=== PATIENT | female | born 1975 | race Caucasian/White ===

== ENCOUNTER → 2018-07-14 | Outpatient (CLI) | payer MEDICAID | LOC: BMCIMAGING 15:10 | PROVIDERS: ATTEND Advanced Practice Midwife | DX: Z12.31 Encounter for screening mammogram for malignant neoplasm of breast (principal) ==

== ENCOUNTER 2018-09-25 18:31 | Emergency (ER) | payer MEDICAID ==
[2018-09-25 18:37] VITALS: BP 143/72
[2018-09-25] MEDS ORDERED: LIDOCAINE 4%/MENTHOL 1% PATCH TD ONE (19:31)
[2018-09-25] MEDS ORDERED: KETOROLAC 30 MG/1 ML SDV IM ONE (19:32)
[2018-09-25] MEDS ORDERED: CYCLOBENZAPRINE 10MG PREPACK#3 BTL TAKEHOME ONE (19:32)
--- NOTE | 2018-09-25 19:37 | EDPHY ---
HPI/HX/ROS/PE/MDM Narrative: CHIEF COMPLAINT: Low back pain HPI: The patient is a 42-year-old female with no history of back surgery or back disease. 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 She believes this is because of severe back pain which started approximately 5 days ago. She denies any fall or specific injury. She complains of low back ache with some radiation to the right sciatic notch region. She denies any saddle anesthesia, incontinence, fever or difficulty walking. She is able to continue to work and lifting things but her pain becomes very severe when she tries to drive home late at night. REVIEW OF SYSTEMS: Aside from elements discussed in the HPI, a comprehensive 10-point review of systems was reviewed and is negative. PMH: No history of back disease. No history of diabetes. SOCIAL HISTORY: Under of a coffee shop. Denies drug abuse. PHYSICAL EXAM: General:Patient is alert, in no acute distress. Sitting up in bed in no acute distress. ENT:Eyes are normal to inspection. ENT inspection normal. Neck: Normal inspection. Full range of motion. Respiratory:No respiratory distress. Breath sounds normal bilaterally. Cardiovascular: Regular rate and rhythm. Strong peripheral pulses. Normal cap refill. Abdomen:The abdomen is nontender to palpation. There are no peritoneal signs. There are normal bowel sounds. Back: Normal to inspection. Mild tenderness over the right sciatic notch. No midline tenderness. No signs of trauma. Skin: Normal color. No rash. Warm and dry. Extremities: Normal appearance. Full range of motion. Neuro: Oriented x3. Normal motor function. Normal sensory function. 5/5 strength to dorsiflexion plantar flexion bilaterally. Normal gait. MDM: This patient presents with signs and symptoms of a low back strain. There are no signs of cauda equina, discitis or other neurosurgical emergency. We discussed imaging but agreed on symptomatic management as well as referral to [facility] for further evaluation. We discussed strict return precautions. General Time Seen by Provider: 09/25/18 19:13 Initial Vital Signs: Initial Vital Signs Temperature (C) 36.9 C 09/25/18 18:33 Heart Rate 73 09/25/18 18:33 Respiratory Rate 16 09/25/18 18:33 Blood Pressure 143/72 H 02/17/19 18:33 O2 Sat (%) 98 09/25/18 18:33 O2 Delivery Mode Room Air Allergies/Adverse Reactions: Sulfa (Sulfonamide Antibiotics) Allergy (Verified 09/25/18 18:37) Home Medications: Medication Instructions Recorded [place] Thyroid 09/25/18 Cyclobenzaprine [Flexeril] 10 mg PO TID #15 tab 09/25/18 Lidocaine 4%/Menthol 1% [Icy Hot 1 patch TD BID #5 patch 09/25/18 Lidocaine/Menthol 4%/1% Patch (*)] predniSONE 60 mg PO DAILY 5 Days tab 09/25/18 Departure - Departure Disposition: Home, Routine, Self-Care Clinical Impression: Low back strain Condition: Good Instructions: Acute Low Back Pain (ED) Additional Instructions: Follow-up with [facility] and or a end user support specialist within the next week. Return to the emergency department for fever, abdominal pain, numbness, weakness , incontinence or other concerns. Referrals: NONE *PRIMARY CARE P,. [Primary Care Provider] - As per Instructions Maynor Lentz MD [Medical Doctor] - As per Instructions Prescriptions: Cyclobenzaprine [Flexeril] 10 mg PO TID #15 tab Lidocaine 4%/Menthol 1% [Icy Hot Lidocaine/Menthol 4%/1% Patch (*)] 1 patch TD BID #5 patch predniSONE 60 mg PO DAILY 5 Days tab
[2018-09-25] MEDS ORDERED: PATCH REMOVAL 1 EA PATCH TD SCH (21:00)
== END 2018-09-25 19:58 | disposition home or self-care (01) ==
DX: S39.012A Strain of muscle, fascia and tendon of lower back, initial encounter (principal); X50.0XXA Overexertion from strenuous movement or load, initial encounter; Y92.513 Shop (commercial) as the place of occurrence of the external cause; Y93.9 Activity, unspecified; Y99.9 Unspecified external cause status; Z88.2 Allergy status to sulfonamides
CPT/HCPCS: J1885